=== PATIENT | male | born 1980 | race African-American/Black ===

== ENCOUNTER 2019-08-06 16:48 | Emergency (ER) | payer SELFPAY ==
[~2019-08-06] VITALS: Ht 175.3 cm; Wt 88.9 kg
[2019-08-06 17:19] VITALS: BP 128/74
--- NOTE | 2019-08-06 17:48 | PHYS DOC ---
Past Medical History Past Medical History: Hypothyroid Past Surgical History: No Surgical History Smoking Status: Never Smoker Alcohol Use: None Adult General Chief Complaint Chief Complaint: BACK PAIN - NO INJURY HPI HPI Patient is a 39 year old with history of chronic back pain with sciatica presenting to the ED today complaining of 10 out of 10 right low back pain radiating to the right lower extremity that has been going on for years. Patient reports he used to be given Percocet for his pain but he just recently got discharged from retirement and has not taken this medicine for a while. Patient denies any injury. Denies any loss of bowel or bladder function. Review of Systems Review of Systems Constitutional: Denies fever or chills [] GI: Denies abdominal pain, nausea, vomiting, bloody stools or diarrhea [] : Denies dysuria or hematuria [] Musculoskeletal: Reports right low back pain radiating to the right lower extremity Integument: Denies rash or skin lesions [] Neurologic: Denies headache, focal weakness or sensory changes [] All other systems were reviewed and found to be within normal limits, except as documented in this note. Allergies Allergies Allergies Coded Allergies Type Severity Reaction Last Updated Verified No Known Drug Allergies 08/06/19 No Physical Exam Physical Exam Constitutional: Well developed, well nourished, no acute distress, non-toxic appearance. [] . [] Skin: Warm, dry, no erythema, no rash. [] Back: Tenderness to the right SI joint, no midline lumbar spine tenderness, no CVA tenderness. Positive right leg straight raises Extremities: No tenderness, no cyanosis, no clubbing, ROM intact, no edema. [] Neurologic: Alert and oriented X 3, normal motor function, normal sensory function, no focal deficits noted. [] Psychologic: Affect normal, judgement normal, mood normal. [] Current Patient Data Vital Signs Vital Signs Date Time Temp Pulse Resp B/P (MAP) Pulse Ox O2 Delivery O2 Flow Rate FiO2 08/06/19 17:19 98.2 106 24 128/74 (92) 98 Room Air 98.2 EKG EKG [] Radiology/Procedures Radiology/Procedures [] Course & Med Decision Making Course & Med Decision Making Pertinent Labs and Imaging studies reviewed. (See chart for details) This is a 39-year-old male patient presenting to the ED today with right low back pain radiating to the right lower extremity, chronic in nature. No cauda equina syndrome Patient met hospital [facility] [place] [facility] protocol. He left Dragon Disclaimer Dragon Disclaimer This electronic medical record was generated, in whole or in part, using a voice recognition dictation system. Departure Departure Impression: Primary Impression: Sciatica, right side Disposition: 07 AGAINST MEDICAL ADVICE Condition: STABLE Referrals: NO PCP (PCP) FRIDA WILKINSON APRN Aug 06, 2019 17:48
== END 2019-08-06 17:53 | disposition home or self-care (01) ==
LOC: ER 16:48
DX: M54.41 Lumbago with sciatica, right side (principal); E03.9 Hypothyroidism, unspecified
CPT/HCPCS: 99281